=== PATIENT | female | born 1955 | race Caucasian/White ===

== ENCOUNTER → 2021-01-04 | Outpatient (CLI) | payer OTHER ==
[2021-01-05 09:13] LABS: RHEUMATOID ARTHRITIS FACTOR <10.0 IU/mL (0.0-13.9)
== END ==
LOC: LAB 11:47
PROVIDERS: Nurse Practitioner Family
DX: D89.9 Disorder involving the immune mechanism, unspecified (principal); M25.50 Pain in unspecified joint; R76.8 Other specified abnormal immunological findings in serum; M79.10 Myalgia, unspecified site; Z86.2 Personal history of diseases of the blood and blood-forming organs and certain disorders involving the immune mechanism
CPT/HCPCS: 36415; 81001; 82550; 82570; 83520; 84156; 85652; 86140; 86200; 86431

== ENCOUNTER → 2021-02-07 | Outpatient (CLI) | payer OTHER | LOC: EXRD 14:25 | DX: M25.532 Pain in left wrist (principal); M25.531 Pain in right wrist; M19.139 Post-traumatic osteoarthritis, unspecified wrist | CPT/HCPCS: 73130 ==